=== PATIENT | female | born 1970 | race Native Hawaiian/Other Pacific Islander ===

== ENCOUNTER 2018-05-07 12:42 | Emergency (ER) | payer OTHER, SELFPAY ==
[2018-05-07 12:42] VITALS: BMI 32.4
[2018-05-07 12:48] VITALS: PULSE 82; RESP 20
--- NOTE | 2018-05-07 13:37 | C.PDOC ---
History Of Present Illness 48 year old female presents to the emergency department with complaints of feeling weak and dizziness. Patient was sent here by clinic with a Hemoglobin of 7.7 on 04-08-18. Patient reports that she has blood in her stool due to hemorrhoids. She denies vaginal bleeding, chest pain, or shortness of breath. Time Seen by Provider: 05/07/18 13:03 Chief Complaint (Nursing): Abnormal Labs History Per: Patient History/Exam Limitations: no limitations Onset/Duration Of Symptoms: Days Current Symptoms Are (Timing): Still Present Past Medical History Reviewed: Historical Data, Nursing Documentation, Vital Signs Vital Signs: Last Vital Signs Temp 97.3 F L 05/07/18 12:46 Pulse 82 05/07/18 12:46 Resp 20 05/07/18 12:46 BP 187/94 H 05/07/18 12:46 Pulse Ox 100 05/07/18 15:10 - Medical History PMH: HTN Surgical History: No Surg Hx Family History: States: Unknown Family Hx - Social History Hx Alcohol Use: No Hx Substance Use: No - Immunization History Hx Tetanus Toxoid Vaccination: No Hx Influenza Vaccination: No Hx Pneumococcal Vaccination: No Review Of Systems Except As Marked, All Systems Reviewed And Found Negative. Constitutional: Positive for: Weakness Gastrointestinal: Positive for: Hematochezia Neurological: Positive for: Dizziness Physical Exam - Physical Exam Appears: Non-toxic, No Acute Distress Skin: Warm, Dry Head: Atraumatic, Normacephalic Eye(s): bilateral: Normal Inspection Neck: Normal, Supple Chest: Symmetrical Cardiovascular: Rhythm Regular, No Murmur Respiratory: Normal Breath Sounds, No Rales, No Rhonchi, No Wheezing Gastrointestinal/Abdominal: Normal Exam, Soft, No Tenderness, No Guarding, No Rebound Extremity: Normal ROM Neurological/Psych: Oriented x3, Normal Speech, Normal Cognition ED Course And Treatment - Laboratory Results Result Diagrams: 05/07/18 13:39 05/07/18 13:39 ECG Rhythm: Sinus Rhythm ECG Interpretation: Normal Interpretation Of ECG: Normal sinus rhythm at 80 bpm, normal axis, normal intervals, no st/t wave abnormalities. Rate From EC O2 Sat by Pulse Oximetry: 100 (RA) Pulse Ox Interpretation: Normal Medical Decision Making Medical Decision Making: Assessment: Anemia Plan: EKG BNP CMP Magnesium TSH Troponin I CBC PTT Prothrombin Time CXR One View Urinalysis anemia - patient states improvement. Hgb improved. Will discharge home to follow up with medical clinic within 2 days Disposition - Disposition Referrals: [facility] [Outside] Disposition: HOME/ ROUTINE Disposition Time: 15:09 Condition: STABLE Additional Instructions: follow up with medical clinic within 2 days call to make an appointment take medications as prescribed return to ER if symptoms worsens or progress Instructions: Anemia Caused by [place] Forms: General Discharge Instructions, [facility] (Sinhala), Work Excuse - Clinical Impression Clinical Impression: Anemia - Scribe Statement The provider has reviewed the documentation as recorded by the Scribe (Diogo [email or web address]) Provider Attestation: All medical record entries made by the Scribe were at my direction and personally dictated by me. I have reviewed the chart and agree that the record accurately reflects my personal performance of the history, physical exam, medical decision making, and the department course for this patient. I have also personally directed, reviewed, and agree with the discharge instructions and disposition.
[2018-05-07 13:43] LABS: BASO # 0.2 K/uL (0.0-0.2); BASO % 2.7 % (0.0-2.0); EOS # 0.3 K/uL (0.0-0.7); EOS % 4.9 % (0.0-4.0); LYMPH % 28.5 % (20.0-40.0); MEAN CORPUSCULAR HEMOGLOBIN 21.8 pg (27.0-31.0); MEAN CORPUSCULAR HGB CONC 31.1 g/dL (33.0-37.0); MEAN PLATELET VOLUME 7.3 fL (7.2-11.7); MONO # 0.3 K/uL (0.0-0.8); MONO % 4.3 % (0.0-10.0); NEUT # 4.1 K/uL (1.8-7.0); NEUT % 59.6 % (50.0-75.0); NRBC % 0.1 % (0.0-2.0); RBC 3.67 Mil/uL (3.80-5.20); RED CELL DISTRIBUTION WIDTH 18.7 % (11.5-14.5); WHITE BLOOD COUNT 6.9 K/uL (4.8-10.8)
[2018-05-07 13:45] LABS: MEAN CELL VOLUME 70.2 fL (81.0-99.0)
[2018-05-07 13:51] LABS: INR 1.1; PROTHROMBIN TIME 11.5 SECONDS (9.7-12.2)
[2018-05-07 13:53] LABS: URINE BILIRUBIN NEGATIVE (NEGATIVE); URINE BLOOD 3+ (NEGATIVE); URINE CLARITY Hazy (Clear); URINE COLOR Yellow (YELLOW); URINE GLUCOSE (UA) NORMAL (Normal); URINE LEUKOCYTE ESTERASE TRACE Leu/uL (Negative); URINE PROTEIN NEGATIVE (NEGATIVE); URINE UROBILINOGEN NORMAL mg/dL (0.2-1.0)
[2018-05-07 13:56] LABS: ALBUMIN 4.7 g/dL (3.5-5.0); BLOOD UREA NITROGEN 11 mg/dL (7-17); CALCIUM 9.3 mg/dl (8.6-10.4); GFR NON-AFRICAN AMERICAN > 60
[2018-05-07 13:57] LABS: ALB/GLOB RATIO 1.3 (1.0-2.1); ALT/SGPT 32 U/L (9-52); AST/SGOT 40 U/L (14-36)
[2018-05-07 14:18] LABS: B-TYPE NATRIURETIC PEPTIDE 37.5 pg/mL (0-450)
--- NOTE | 2018-05-07 15:12 | RAD ---
Date of service: 05/07/2018 PROCEDURE: CHEST RADIOGRAPH, 1 VIEW HISTORY: SOB COMPARISON: None available. FINDINGS: LUNGS: Clear. PLEURA: No pneumothorax or pleural fluid seen. CARDIOVASCULAR: Normal. OSSEOUS STRUCTURES: A 1 x 3 mm os ossific like density projects over the left scapula just below the scapular spine -a bone island is compatible with this. No significant abnormalities. VISUALIZED UPPER ABDOMEN: Normal. OTHER FINDINGS: None. IMPRESSION: No active disease. Probable scapular bone island.
[2018-05-07 15:25] VITALS: BP 126/72; TEMP 98.7; O2SAT 99
--- NOTE | 2018-05-09 00:06 | CARD ---
APPROVED REPORT Date of service: 05/07/2018 EKG Measurement Heart [id number] <Conclusion> Normal sinus rhythm Normal ECG
== END 2018-05-07 15:30 | disposition home or self-care (01) ==
LOC: C.ER 12:42
DX: D64.9 Anemia, unspecified (principal)